=== PATIENT | female | born 1990 | race Caucasian/White ===

== ENCOUNTER 2018-03-20 17:36 | Emergency (ER) | payer OTHER ==
--- NOTE | 2018-03-20 17:51 | PDOC ---
Rapid Medical Evaluation Time Seen by Provider: 03/20/18 17:46 Medical Evaluation: Allergies Allergy/AdvReac Type Severity Reaction Status Date / Time No Known Allergies Allergy Verified 03/20/18 17:49 03/20/18 17:49 Pt presents for STD testing. Her partner has penile drainage. Exam: Ambulatory, AAOx3, NAD Orders: STD screening Pt to proceed to ED for further evaluation. Discharge Disposition - Diagnosis Screening for STD (sexually transmitted disease) - Referrals - Patient Instructions - Post Discharge Activity
[2018-03-20 17:53] VITALS: BP 120/78; PULSE 118; TEMP 99.5; BMI 22.6
[2018-03-20] MEDS ORDERED: AZITHROMYCIN 500 MG TABLET PO ONE (17:59)
--- NOTE | 2018-03-20 18:15 | PDOC ---
History of Present Illness - General History Source: Patient, Night Order Selector Used ([id number]) Exam Limitations: Language Barrier - History of Present Illness Travel History: No Initial Comments: 03/20/18 18:16 c/o vaginal discharge and vaginal itching for 3 days. Pt states her male partner has similiar complaints, here for STD testing. no PMHX no history of STD in the past. LMP 15 days ago. <Lois Rizo - Last Filed: 03/20/18 19:39> <Dat Galvan - Last Filed: 03/20/18 20:12> - General Chief Complaint: Vaginal Sxs Stated Complaint: STD TESTING Time Seen by Provider: 03/20/18 17:46 Past History - Past Medical History COPD: No DVT: No - Immunization History Immunization Up to Date: Yes - Suicide/Smoking/Psychosocial Hx Smoking History: Never smoked Have you smoked in the past 12 months: No Information on smoking cessation initiated: No Hx Alcohol Use: No Drug/Substance Use Hx: No Substance Use Type: None <Lois Rizo - Last Filed: 03/20/18 19:39> <Dat Galvan - Last Filed: 03/20/18 20:12> - Past Medical History Allergies/Adverse Reactions: Allergies Allergy/AdvReac Type Severity Reaction Status Date / Time No Known Allergies Allergy Verified 03/20/18 17:49 Home Medications: Ambulatory Orders NK [No Known Home Medication] 03/20/18 *Physical Exam - Vital Signs Last Vital Signs Temp Pulse Resp BP Pulse Ox 99.5 F 118 H 16 120/78 100 03/20/18 17:50 03/20/18 17:50 03/20/18 17:50 03/20/18 17:50 03/20/18 17:50 - Physical Exam General Appearance: Yes: Nourished, Appropriately Dressed HEENT: positive: EOMI, EMILY Female Pelvic Exam: positive: normal external exam, discharge (scant yellow discharge). negative: CMT, lesions, adnexal tenderness Gastrointestinal/Abdominal: positive: Normal Bowel Sounds, Soft. negative: Tender Musculoskeletal: positive: Normal Inspection Extremity: positive: Normal Capillary Refill, Normal Inspection, Normal Range of Motion Integumentary: positive: Normal Color, Dry, Warm Neurologic: positive: Fully Oriented, Alert, Normal Mood/Affect, Normal Response , Motor Strength 5/5 <Lois Rizo - Last Filed: 03/20/18 19:39> - Vital Signs Last Vital Signs Temp Pulse Resp BP Pulse Ox 99.5 F 118 H 16 120/78 100 03/20/18 17:50 03/20/18 17:50 03/20/18 17:50 03/20/18 17:50 03/20/18 17:50 <Dat Galvan - Last Filed: 03/20/18 20:12> ED Treatment Course - ADDITIONAL ORDERS Additional order review: Laboratory Results 03/20/18 18:06 Urine Color Yellow Urine Appearance Clear Urine pH 7.0 Ur Specific [place] 1.023 Urine Protein Negative Urine Glucose (UA) Negative Urine Ketones Negative Urine Blood Negative Urine Nitrite Negative Urine Bilirubin Negative Urine Urobilinogen 4.0 e.u/dl H Ur Leukocyte Esterase Negative Urine HCG, Qual Negative - Medications Given in the ED: ED Medications Discontinued Medications Generic Name Dose Route Start Last Admin Trade Name Freq PRN Reason Stop Dose Admin Azithromycin 1,000 mg 03/20/18 17:59 03/20/18 18:42 Azithromycin PO 03/20/18 18:00 1,000 mg ONCE ONE Administration Ceftriaxone Sodium 250 mg 03/20/18 17:59 03/20/18 18:42 Rocephin - IM 03/20/18 18:00 250 mg ONCE STA Administration <Dat Galvan - Last Filed: 03/20/18 20:12> Medical Decision Making - Medical Decision Making 03/20/18 18:30 cc: possible STD exposure here for STD testing partner has burning on urination pt c/o vag itching and yellow discharge for 3 days will treat with Azithro and ceftriaxone HIV, RPR and vaginal cultures pt given dc inst via congolese translation <Lois Rizo - Last Filed: 03/20/18 19:39> *DC/Admit/Observation/Transfer <Lois Rizo - Last Filed: 03/20/18 19:39> <Dat Galvan - Last Filed: 03/20/18 20:12> Diagnosis at time of Disposition: Screening for STD (sexually transmitted disease) - Discharge Dispostion Disposition: HOME Condition at time of disposition: Good - Patient Instructions Additional Instructions: 03/20/18 1. As discussed, a screening test for the HIV virus was performed today. Your HIV test is Negative (normal). 2. As discussed, if you engaged in high risk-behavior in the three (3) months prior to this test, you could still potentially be at risk and you will need to be re-tested. 3. As discussed, avoid any high risk behavior (such as unprotected sex or needle-sharing) in the future to minimize the chances of kenn HIV. we will call you with the results of the cultures today we are treating you with antibiotics for possible STD infection avoid any sexual activity until you have been notified of the results te llamaremos con los resultados de las culturas de hoy lo estamos tratando con antibiticos para [place] posible infeccin de ETS evite cualquier actividad sexual hasta que haya sido notificado de los resultados Print Language: ENG
[2018-03-20] MEDS ORDERED: AZITHROMYCIN 250 MG TABLET ONE (18:26)
[2018-03-20 18:32] LABS: HCG,QUALITATIVE URINE NEGATIVE
[2018-03-20 18:38] LABS: URINE APPEARANCE CLEAR; URINE BILIRUBIN NEGATIVE (<2.0 mg/dL); URINE COLOR YELLOW; URINE GLUCOSE (UA) NEGATIVE (NEGATIVE); URINE KETONE NEGATIVE (NEGATIVE); URINE LEUK ESTERASE NEGATIVE (NEGATIVE); URINE NITRITE NEGATIVE (NEGATIVE); URINE PROTEIN NEGATIVE (NEGATIVE); URINE UROBILINOGEN 4.0 E.U/dl mg/dL (0.2-1.0)
== END 2018-03-20 20:32 | disposition home or self-care (01) ==
LOC: JERFT 17:36
DX: Z11.3 Encounter for screening for infections with a predominantly sexual mode of transmission (principal)
CPT/HCPCS: 36415; 81003; 84703; 86593; 86790; 87070; 87086; 87205; 87255; 87491; 87591; 96372; 99281-25